=== PATIENT | male | born 1990 | race African-American/Black ===

== ENCOUNTER 2021-08-18 19:46 | Emergency (ER) | payer OTHER ==
[~2021-08-18] VITALS: Ht 165.1 cm; Wt 70.0 kg
[2021-08-18] MEDS ORDERED: HYDROmorphone 1 MG/ML, 1ML INJ IM ONE (23:30)
[2021-08-18] MEDS ORDERED: HYDROmorphone 2 MG/ML, 1ML ONE (23:32)
[2021-08-19] MEDS ORDERED: KETAMINE 10 MG/ML, 20ML IV ONE
[2021-08-19] MEDS ORDERED: KETAMINE 10 MG/ML, 20ML ONE (00:03)
--- NOTE | 2021-08-19 01:13 | NUR ---
procedural sedation completed by Dr. Chidi DAVEY without complications
[2021-08-19 01:31] VITALS: BP 138/61
--- NOTE | 2021-08-19 01:49 | NUR ---
patients significant other continually getting patient up out of bed after an initial failed road test. informed significant other that patient is not to get out of bed without assistance of nurse for safety reasons. patients significant other did not acknowledge RN
--- NOTE | 2021-08-19 02:04 | NUR ---
patient ambulated without assistance of RN, VSS, alert and oriented times 4. road tested successfully
== END 2021-08-19 02:09 | disposition home or self-care (01) ==
LOC: ED 20:00
DX: S62.144A Nondisplaced fracture of body of hamate [unciform] bone, right wrist, initial encounter for closed fracture (principal); S63.266A Dislocation of metacarpophalangeal joint of right little finger, initial encounter; W01.0XXA Fall on same level from slipping, tripping and stumbling without subsequent striking against object, initial encounter; Y93.89 Activity, other specified; Y92.009 Unspecified place in unspecified non-institutional (private) residence as the place of occurrence of the external cause; Y99.8 Other external cause status
CPT/HCPCS: 26700; 73130; 96372; 99152; 99285; J1170

== ENCOUNTER → 2021-08-20 | Outpatient (CLI) | payer OTHER | END | disposition home or self-care (01) | LOC: CFH 15:32 | PROVIDERS: ATTEND Nurse Practitioner | DX: S62.141A Displaced fracture of body of hamate [unciform] bone, right wrist, initial encounter for closed fracture (principal); X58.XXXA Exposure to other specified factors, initial encounter; Y93.89 Activity, other specified; Y92.89 Other specified places as the place of occurrence of the external cause; Y99.8 Other external cause status ==